=== PATIENT | male | born 1990 | race African-American/Black ===

== ENCOUNTER 2018-09-10 15:28 | Emergency (ER) | payer MEDICAID ==
[~2018-09-10] VITALS: Ht 170.2 cm; Wt 87.0 kg
[2018-09-10 15:38] VITALS: BP 149/69; Ht 170.2 cm; Wt 87.0 kg
[2018-09-10] MEDS ORDERED: ULTRAM50 MG PO (15:41)
== END 2018-09-10 17:04 | disposition left against medical advice (07) ==
LOC: D.ER 15:28
DX: H92.01 Otalgia, right ear (principal); R05 Cough; R09.89 Other specified symptoms and signs involving the circulatory and respiratory systems